=== PATIENT | male | born 1990 | race Caucasian/White ===

== ENCOUNTER 2016-08-10 11:39 | Emergency (ER) | payer BC ==
[~2016-08-10] VITALS: Ht 170.2 cm; Wt 86.5 kg
[2016-08-10 11:41] VITALS: Ht 170.2 cm; Wt 86.5 kg
[2016-08-10] MEDS ORDERED: predniSONE 20 MG TAB PO STA (11:55)
[2016-08-10] MEDS ORDERED: IPRATROPIUM (NEB) 0.5 MG/2.5 ML AMP NEB STA (11:55)
[2016-08-10] MEDS ORDERED: ALBUTEROL 0.083% (NEB) 2.5 MG/3 ML AMP NEB STA (11:55)
[2016-08-10] MEDS ORDERED: PRED20TA PO (12:14)
[2016-08-10] MEDS ORDERED: ALBU18HF INHALATION ×2 (12:14→13:45)
[2016-08-10] MEDS ORDERED: IPRATROPIUM (NEB) 0.5 MG/2.5 ML AMP INH STA (12:40)
[2016-08-10] MEDS ORDERED: ALBUTEROL 0.5% (NEB) 2.5 MG/0.5 ML AMP INH STA (12:40)
--- NOTE | 2016-08-10 13:48 | ERD ---
ER Documentation Chief Complaint Date/Time DATE: 08/10/16 TIME: 13:46 Chief Complaint ASTHMA X 3 DAYS HPI Very pleasant 26-year-old male history of asthma who presents the emergency room with 3 days of shortness of breath and wheezing. He states that usually environmental triggers are what make his asthma worse. The patient describes no significant fevers, dry nonproductive cough and wheezing without improvement with his inhaler at home. He is running low on his inhaler. No recent travel, immobilization. No chest pain. ROS All systems reviewed and are negative except as per history of present illness. Medications Home Meds Active Scripts Albuterol Sulfate* (Ventolin HFA*) 18 Gm Hfa.aer.ad, 2 PUFF INHALATION Q4H, #1 INHALER 3 Refills Prov:CHELSIE BURTON MD 08/10/16 Prednisone* (Prednisone*) 20 Mg Tab, 40 MG PO DAILY for 4 Days, TAB Prov:CHELSIE BURTON MD 08/10/16 Albuterol Sulfate* (Ventolin HFA*) 18 Gm Hfa.aer.ad, 2 PUFF INHALATION Q4H, #1 INHALER Prov:CHELSIE BURTON MD 08/10/16 PMhx/Soc Hx Respiratory Disorders: Yes (asthma) Hx Alcohol Use: No Hx Substance Use: No Hx Tobacco Use: No FmHx Family History: No diabetes Physical Exam Vitals Vital Signs Date Time Temp Pulse Resp B/P Pulse Ox O2 Delivery O2 Flow Rate FiO2 08/10/16 12:50 84 20 96 21 08/10/16 12:20 75 20 95 21 08/10/16 11:41 97.4 82 18 131/86 95 Physical Exam General: Well developed, well nourished, no acute distress Head: Normocephalic, atraumatic. Eyes: Pupils equally reactive, EOM intact ENT: Moist mucous membranes Neck: Supple, no lymphadenopathy Respiratory: Diffuse wheezing, no rhonchi, no respiratory distress, decreased aeration Cardiovascular: RRR, no murmurs, rubs, or gallops Abdominal: Soft, non-tender, non-distended, no peritoneal signs : Deferred MSK: No edema, no unilateral swelling, 5/5 strength Neurologic: Alert and oriented, moving all extremities, normal speech, no focal weakness, no cerebellar signs Skin: No rash Psych: Normal mood Results 24 hrs Current Medications Medications (Trade) Dose Ordered Sig/Saira Route PRN Reason Start Time Stop Time Status Last Admin Dose Admin Albuterol (Proventil 0.083% (Neb)) 2.5 mg ONCE STAT NEB 08/10/16 11:55 08/10/16 12:00 DC 08/10/16 12:19 Ipratropium Scurry (Atrovent 0.02% (Neb)) 0.5 mg ONCE STAT NEB 08/10/16 11:55 08/10/16 12:00 DC 08/10/16 12:19 Prednisone (Prednisone) 60 mg ONCE STAT PO 08/10/16 11:55 08/10/16 12:00 DC 08/10/16 12:05 Albuterol (Proventil 0.5% (Neb)) 7.5 mg ONCE STAT INH 08/10/16 12:40 08/10/16 12:42 DC 08/10/16 12:49 Ipratropium Scurry (Atrovent 0.02% (Neb)) 1 mg ONCE STAT INH 08/10/16 12:40 08/10/16 12:42 DC 08/10/16 12:49 Procedures/MDM MEDICAL DECISION MAKING: The patient presents with signs and symptoms consistent with moderate asthma with exacerbation likely secondary to environmental factors. No evidence of pneumonia. No fever, no significant hypoxia. The patient does have decreased aeration would benefit from oral steroids, breathing treatments. ER COURSE: The patient has been given a single DuoNeb still with wheezing. He was given an hour-long with a dramatic improvement. He still has scant wheezing but overall good aeration. He was given oral prednisone. At this time the patient has subjective improvement. The patient no longer has significant respiratory distress. Saturation on room air is greater than 95%. At this time I feel the patient can be safely discharged home. I recommended outpatient primary care follow-up. He does not have a primary care physician and I provided referral information. Return precautions discussed. I kept the patient and/or family informed of laboratory and diagnostic imaging results throughout the emergency room course. DISPOSITION PLAN: We discussed follow up with the patient's primary care doctor within 24 to 48 hours as needed. We also discussed return to the emergency room for worsening symptoms or worsening condition. Outpatient referral: Primary care Discharge Medications: Prednisone, albuterol Departure Diagnosis: Primary Impression: Asthma with acute exacerbation Asthma severity: unspecified severity Qualified Code: J45.901 - Asthma with acute exacerbation, unspecified asthma severity Condition: Stable Patient Instructions: Asthma, Acute (Adult) Referrals: DYLAN WHITE MD, JOSHUA A MD VADGAMA,JEREMIAH Cortez MD, [facility] YOU HAVE RECEIVED A MEDICAL SCREENING EXAM AND THE RESULTS INDICATE THAT YOU DO NOT HAVE A CONDITION THAT REQUIRES URGENT TREATMENT IN THE EMERGENCY DEPARTMENT. FURTHER EVALUATION AND TREATMENT OF YOUR CONDITION CAN WAIT UNTIL YOU ARE SEEN IN YOUR DOCTORS OFFICE WITHIN THE NEXT 1-2 DAYS. IT IS YOUR RESPONSIBILITY TO MAKE AN APPOINTMENT FOR FOLOW-UP CARE. IF YOU HAVE A PRIMARY DOCTOR --you should call your primary doctor and schedule an appointment IF YOU DO NOT HAVE A PRIMARY DOCTOR YOU CAN CALL OUR PHYSICIAN REFERRAL HOTLINE AT IF YOU CAN NOT AFFORD TO SEE A PHYSICIAN YOU CAN CHOSE FROM THE FOLLOWING [facility] [address] [employer] [facility]. [facility] [address] [facility]. [facility] [address] [facility] [address] [facility] [address] [facility]. [facility]. [address] [facility]. [facility] YOU HAVE RECEIVED A MEDICAL SCREENING EXAM AND THE RESULTS INDICATE THAT YOU DO NOT HAVE A CONDITION THAT REQUIRES URGENT TREATMENT IN THE EMERGENCY DEPARTMENT. FURTHER EVALUATION AND TREATMENT OF YOUR CONDITION CAN WAIT UNTIL YOU ARE SEEN IN YOUR DOCTORS OFFICE WITHIN THE NEXT 1-2 DAYS. IT IS YOUR RESPONSIBILITY TO MAKE AN APPOINTMENT FOR FOLOW-UP CARE. IF YOU HAVE A PRIMARY DOCTOR --you should call your primary doctor and schedule and appointment IF YOU DO NOT HAVE A PRIMARY DOCTOR YOU CAN CALL OUR PHYSICIAN REFERRAL HOTLINE AT . IF YOU CAN NOT AFFORD TO SEE A PHYSICIAN YOU CAN CHOSE FROM THE FOLLOWING [facility] INSTITUTIONS: [facility] [address] [place] [address] [facility] [address] [place] [address] [facility] [address] [place] [address] Additional Instructions: Call your primary care doctor TOMORROW for an appointment during the next 1 WEEK.Tell the membership secretary that you were referred from this facility.See the doctor sooner or return here if your condition worsens before your appointment time. CHELSIE BURTON MD Aug 10, 2016 13:48
== END 2016-08-10 13:58 | disposition home or self-care (01) ==
LOC: FTE 11:39
DX: J45.901 Unspecified asthma with (acute) exacerbation (principal)
CPT/HCPCS: 94640; 94644; 94664; 99284; J7512

== ENCOUNTER 2016-09-16 01:38 | Emergency (ER) | payer BC ==
[~2016-09-16] VITALS: Ht 182.9 cm; Wt 85.0 kg
[~2016-09-16 01:38] MED LIST: ALBU18HF INHALATION; PRED20TA PO
[2016-09-16 01:41] VITALS: Ht 182.9 cm; Wt 85.0 kg
[2016-09-16] MEDS ORDERED: AZEL23SP NASAL (04:04)
[2016-09-16] MEDS ORDERED: AZEL137S9 NASAL (04:04)
[2016-09-16] MEDS ORDERED: PRED20TA PO (04:05)
--- NOTE | 2016-09-16 04:09 | ERD ---
ER Documentation Chief Complaint Date/Time DATE: 09/16/16 TIME: 04:07 Chief Complaint VERTIGO SINCE YESTERDAY, STATES HE ALSO HAS A SINUS INFECTION. HPI 26-year-old male with history of allergic rhinitis presents the emergency department complaining of ongoing nasal congestion and bilateral ear pain. Patient denies any fever, chills, nausea, vomiting. Patient states that he has been taking Flonase as well as Karen-D and was experiencing relief of symptoms up until 2 days ago. Patient states at this time he has intense nasal congestion with rhinorrhea. He rates his pain as a constant 7 out of 10 pressure. Patient denies any exacerbating factors. ROS All systems reviewed and are negative except as per history of present illness. Medications Home Meds Active Scripts Ciprofloxacin Hcl/Dexameth (Ciprodex Otic Suspension) 7.5 Ml Drops.susp, 4 DROP BOTH EARS BID, #1 BOTTLE Prov:AMIRAH LUNDBERG PA-C 09/16/16 Amoxicillin/Potassium Clav (Amox-Clav 500-125 mg Tablet) 500-125 mg Tab, 1 TAB PO BID for 10 Days, TAB Prov:AMIRAH LUNDBERG PA-C 09/16/16 Albuterol Sulfate* (Proair HFA*) 8.5 Gm Hfa.aer.ad, 2 PUFF INH Q4, #1 INHALER Prov:AMIRAH LUNDBERG PA-C 09/16/16 Prednisone* (Prednisone*) 20 Mg Tab, 40 MG PO DAILY for 4 Days, TAB Prov:AMIRAH LUNDBERG PA-C 09/16/16 Azelastine Hcl* (Azelastine Hcl*) 137 Mcg/0.137 Ml [place].pump, 1 SPRAY NASAL BID , #1 EA TO EACH NOSTRIL Prov:AMIRAH LUNDBERG PA-C 09/16/16 Azelastine/Fluticasone (DYMISTA NASAL SPRAY) 23 Gm [place].pump, 1 SPRAY NASAL BID , #1 BOTTLE TO EACH NOSTRIL Prov:AMIRAH LUNDBERG PA-C 09/16/16 Albuterol Sulfate* (Ventolin HFA*) 18 Gm Hfa.aer.ad, 2 PUFF INHALATION Q4H, #1 INHALER 3 Refills Prov:CHELSIE BURTON MD 08/10/16 Prednisone* (Prednisone*) 20 Mg Tab, 40 MG PO DAILY for 4 Days, TAB Prov:CHELSIE BURTON MD 08/10/16 Albuterol Sulfate* (Ventolin HFA*) 18 Gm Hfa.aer.ad, 2 PUFF INHALATION Q4H, #1 INHALER Prov:CHELSIE BURTON MD 08/10/16 Allergies Allergies: Coded Allergies: NSAIDS (Non-Steroidal Anti-Inflamma (Verified Allergy, Unknown, 09/16/16) PMhx/Soc Medical and Surgical Hx: pt denies Surgical Hx Hx Respiratory Disorders: Yes (asthma) Hx Alcohol Use: Yes Hx Substance Use: No Hx Tobacco Use: Yes Smoking Status: Light tobacco smoker Physical Exam Vitals Vital Signs Date Time Temp Pulse Resp B/P Pulse Ox O2 Delivery O2 Flow Rate FiO2 09/16/16 01:41 96.3 96 18 135/86 100 Physical Exam Const: Well-developed, well-nourished, no acute distress Head: Atraumatic Eyes: EOMs intact. PERRLA. Normal Conjunctiva ENT: Normal External Ears, Nose and Mouth. Tympanic membranes without erythema or swelling bilaterally. Posterior oropharynx without evidence of erythema or tonsillar swelling. Neck: Full range of motion..~ No meningismus. Resp: Clear to auscultation bilaterally Cardio: Regular rate and rhythm, no murmurs Abd: Soft, non tender, non distended. Normal bowel sounds Skin: No petechiae or rashes Back: No midline or flank tenderness Ext: No cyanosis, or edema Neur: Awake and alert Psych: Normal Mood and Affect Results 24 hrs Current Medications Medications (Trade) Dose Ordered Sig/Saira Route PRN Reason Start Time Stop Time Status Last Admin Dose Admin Acetaminophen (Tylenol Tab) 650 mg ONCE ONCE PO 09/16/16 04:30 09/16/16 04:31 DC 09/16/16 04:20 Procedures/MDM 26-year-old male with a history of allergic rhinitis complaints of increasing nasal congestion and pressure behind his ears despite use of fluticasone and Karen-D. Patient states his medications were significantly improving his allergy symptoms, and his symptoms are still greatly improved, however he has started to experience increase ear and nasal pressure. I offered the patient a dose of steroids while in the emergency department however he refused, stating that he is recently been on steroids and is worried about taking another dose. I will provide the patient with a prescription for steroids if needed at home. Patient states that he is allergic to NSAIDs. At this time I have low suspicion for acute sinus infection, foreign body, otitis media, mastoiditis, giant cell arteriolitis or TMJ. Patient to begin dual nasal topical therapy with as Azelastine and fluticasone combined. Patient to continue Karen-D. I recommended for the patient to follow-up with an research dairy farm supervisor as his symptoms continue despite upper first and second-line treatment. Based on patient's history of present illness and physical examination the decision was made to discharge. The patient was re-evaluated after ED treatment and stabilizing measures, and symptoms have improved. There is no evidence of life threatening injuries or illnesses at this time. On re-examination, patient resting in no distress, stable vital signs, reports feeling better and safe for discharge with outpatient follow up with PMD in 1-2 days. Patient given return precautions. Departure Diagnosis: Primary Impression: Ear pressure Laterality: bilateral Qualified Code: H93.8X3 - Ear pressure, bilateral Additional Impression: Allergic rhinitis Allergic rhinitis trigger: unspecified Allergic rhinitis seasonality: seasonal Qualified Code: J30.2 - Seasonal allergic rhinitis, unspecified allergic rhinitis trigger Condition: Stable Patient Instructions: Allergic Rhinitis Referrals: JAYA MCKINNEY MD,TALA DANG,DYLAN Berumen MD COUNT INCLUDES THE [facility] YOU HAVE RECEIVED A MEDICAL SCREENING EXAM AND THE RESULTS INDICATE THAT YOU DO NOT HAVE A CONDITION THAT REQUIRES URGENT TREATMENT IN THE EMERGENCY DEPARTMENT. FURTHER EVALUATION AND TREATMENT OF YOUR CONDITION CAN WAIT UNTIL YOU ARE SEEN IN YOUR DOCTORS OFFICE WITHIN THE NEXT 1-2 DAYS. IT IS YOUR RESPONSIBILITY TO MAKE AN APPOINTMENT FOR [facility]. IF YOU HAVE A PRIMARY DOCTOR --you should call your primary doctor and schedule an appointment IF YOU DO NOT HAVE A PRIMARY DOCTOR YOU CAN CALL OUR PHYSICIAN REFERRAL HOTLINE AT IF YOU CAN NOT AFFORD TO SEE A PHYSICIAN YOU CAN CHOSE FROM THE FOLLOWING [facility] [address] [facility] [address] [facility] [facility] [address] [facility] [address] [facility] [address] [facility]. [facility]. [address] Additional Instructions: Call your primary care doctor TOMORROW for an appointment during the next 1-2 days.See the doctor sooner or return here if your condition worsens before your appointment time. Follow up with ENT specialist AMIRAH LUNDBERG PA-C Sep 16, 2016 04:09
[2016-09-16] MEDS ORDERED: AMOX1TAB9 PO (04:18)
[2016-09-16] MEDS ORDERED: ALBU8.5H3 INH (04:18)
[2016-09-16] MEDS ORDERED: CIPR7.5D4 BOTH EARS (04:18)
[2016-09-16] MEDS ORDERED: ACETAMINOPHEN 325 MG TAB PO ONE (04:30)
== END 2016-09-16 04:24 | disposition home or self-care (01) ==
LOC: FTE 01:38
DX: H93.8X3 Other specified disorders of ear, bilateral (principal); J30.2 Other seasonal allergic rhinitis; J45.909 Unspecified asthma, uncomplicated; F17.210 Nicotine dependence, cigarettes, uncomplicated
CPT/HCPCS: 99284

== ENCOUNTER 2016-09-18 16:40 | Emergency (ER) | payer BC ==
[~2016-09-18] VITALS: Ht 172.7 cm; Wt 65.0 kg
[~2016-09-18 16:40] MED LIST changes: +ALBU8.5H3 INH; +AMOX1TAB9 PO; +AZEL137S9 NASAL; +AZEL23SP NASAL; +CIPR7.5D4 BOTH EARS
[2016-09-18 16:49] VITALS: Ht 172.7 cm; Wt 65.0 kg
[2016-09-18] MEDS ORDERED: AZIT500T3 PO (16:55)
[2016-09-18] MEDS ORDERED: FEXO1TAB PO (17:07)
[2016-09-18] MEDS ORDERED: MED4DP PO (17:07)
--- NOTE | 2016-09-18 21:58 | ERD ---
ER Documentation Chief Complaint Date/Time DATE: 09/18/16 TIME: 21:54 Chief Complaint C/O BILAT EAR PAIN AND NASAL CONGESTION. HPI 26-year-old man with a history of allergic rhinitis and asthma presents with left earache 2-3 days. He describes serosanguineous discharge from the left EAC as well and has had a few flights to and from [place] and [place]. He has had tactile fevers, denies headache or blurry vision, no neck pain or neck stiffness, no trauma, no chest pain or shortness of breath. Patient has been using prednisone, hydroxyzine, and albuterol as needed. ROS All systems reviewed and are negative except as per history of present illness. Medications Home Meds Active Scripts Albuterol Sulfate* (Proair HFA*) 8.5 Gm Hfa.aer.ad, 2 PUFF INH Q4, #1 INHALER Prov:AMIRAH LUNDBERG PA-C 09/16/16 Albuterol Sulfate* (Ventolin HFA*) 18 Gm Hfa.aer.ad, 2 PUFF INHALATION Q4H, #1 INHALER 3 Refills Prov:CHELSIE BURTON MD 08/10/16 Albuterol Sulfate* (Ventolin HFA*) 18 Gm Hfa.aer.ad, 2 PUFF INHALATION Q4H, #1 INHALER Prov:CHELSIE BURTON MD 08/10/16 Reported Medications Fexofenadine/Pseudoephedrine (Karen-D 24 Hour Tablet) 1 Each Tab.er.24h, 1 EACH PO 09/18/16 Methylprednisolone* (Medrol* DOSE PACK) 4 Mg/Dose-Pack Tab.ds.pk, 4 MG PO . DIRECTED, PACKET STARTED SEPTEMBER 08, 2016 09/18/16 Discontinued Scripts Azithromycin* (Zithromax*) 500 Mg Tablet, 500 MG PO DAILY for 5 Days, TAB Prov:MARCELINA WAGGONER MD 09/18/16 Ciprofloxacin Hcl/Dexameth (Ciprodex Otic Suspension) 7.5 Ml Drops.susp, 4 DROP BOTH EARS BID, #1 BOTTLE Prov:AMIRAH LUNDBERG PA-C 09/16/16 Amoxicillin/Potassium Clav (Amox-Clav 500-125 mg Tablet) 500-125 mg Tab, 1 TAB PO BID for 10 Days, TAB Prov:AMIRAH LUNDBERG PA-C 09/16/16 Prednisone* (Prednisone*) 20 Mg Tab, 40 MG PO DAILY for 4 Days, TAB Prov:AMIRAH LUNDBERG PA-C 09/16/16 Azelastine Hcl* (Azelastine Hcl*) 137 Mcg/0.137 Ml [place].pump, 1 SPRAY NASAL BID , #1 EA TO EACH NOSTRIL Prov:AMIRAH LUNDBERG PA-C 09/16/16 Azelastine/Fluticasone (DYMISTA NASAL SPRAY) 23 Gm [place].pump, 1 SPRAY NASAL BID , #1 BOTTLE TO EACH NOSTRIL Prov:AMIRAH LUNDBERG PA-C 09/16/16 Prednisone* (Prednisone*) 20 Mg Tab, 40 MG PO DAILY for 4 Days, TAB Prov:CHELSIE BURTON MD 08/10/16 Allergies Allergies: Coded Allergies: NSAIDS (Non-Steroidal Anti-Inflamma (Verified Allergy, Unknown, 09/18/16) PMhx/Soc Allergic rhinitis and asthma Medical and Surgical Hx: pt denies Surgical Hx History of Surgery: No Hx Neurological Disorder: No Hx Respiratory Disorders: Yes (asthma) Hx Cardiac Disorders: No Hx Psychiatric Problems: No Hx Miscellaneous Medical Probl: No Hx Alcohol Use: Yes Hx Substance Use: No Hx Tobacco Use: Yes Smoking Status: Current some day smoker FmHx Family History: No diabetes Physical Exam Vitals Vital Signs Date Time Temp Pulse Resp B/P Pulse Ox O2 Delivery O2 Flow Rate FiO2 09/18/16 16:49 97.7 92 19 121/79 99 Physical Exam GENERAL: Well-developed, well-nourished, well-hydrated, in no apparent distress , looks nontoxic in appearance HEENT: Positive erythema and bulging to the left tympanic membrane, right tympanic membrane unremarkable, moist mucous membranes, pink conjunctiva, no cervical spine tenderness or step-off deformities, no goiter, no jaundice or icterus, extraocular movements intact without pain. No submandibular induration , and no pharyngeal erythema NEURO: Alert and oriented 3, cranial nerves II through XII intact bilaterally, pupils equal round reactive to light, no focal deficits or facial asymmetry, sensation intact distally Strength 5/5 in upper and lower extremities bilaterally CARDIAC: Regular rate and rhythm, no murmurs rubs or gallops LUNGS: Clear bilaterally no wheezing crackles or stridor ABDOMEN: Soft nontender, no guarding, no rigidity, no rebound, no psoas sign no obturator sign. Normoactive bowel sounds SKIN: Warm and dry to touch, no abrasions, contusions, or hematomas, no lacerations, no ecchymosis, no target lesions, and without ulcers EXTREMITIES: No clubbing cyanosis or edema, calves are bilaterally symmetrical, no Homans sign, no popliteal cord sign. Distal pulses equal and bilateral PSYCH: Normal affect without agitation or irritability Procedures/MDM Reassurance was provided to the patient and in addition to the medications he is currently taking I prescribed azithromycin daily 5 days Patient feels much better at this time, and vital signs are normal, symptoms have improved. I did give strict instructions to return to the ED if symptoms continue or worsen, patient will otherwise follow-up with primary care physician. Patient understood instructions and agreed to plan. Departure Diagnosis: Primary Impression: Otitis media Otitis media type: suppurative Laterality: left Chronicity: acute Recurrence: not specified as recurrent Spontaneous tympanic membrane rupture: without spontaneous rupture Qualified Code: H66.002 - Acute suppurative otitis media of left ear without spontaneous rupture of tympanic membrane, recurrence not specified Condition: Good Patient Instructions: Otitis Media, Abx Tx (Adult) MARCELINA WAGGONER MD Sep 18, 2016 21:58
== END 2016-09-18 17:44 | disposition home or self-care (01) ==
LOC: E/R 16:40
DX: H66.002 Acute suppurative otitis media without spontaneous rupture of ear drum, left ear (principal); J45.909 Unspecified asthma, uncomplicated; F17.210 Nicotine dependence, cigarettes, uncomplicated
CPT/HCPCS: 99282

== ENCOUNTER 2017-12-01 07:17 | Emergency (ER) | END 2017-12-01 08:16 | disposition home or self-care (01) ==